=== PATIENT | male | born 1985 | race Caucasian/White ===

== ENCOUNTER 2022-12-06 01:47 | Outpatient (CLI) | payer BC, SELFPAY ==
[2022-12-06 16:50] LABS: Abs Immature Grans 0.02 10^3/uL (0.0-0.06); Absolute Basophil Count 0.04 10^3/uL (0.0-0.2); Absolute Eosinophil Count 0.27 10^3/uL (0.0-0.7); Absolute Lymphocyte Count 2.07 10^3/uL (1.2-3.4); Absolute Monocyte Count 0.52 10^3/uL (0.1-0.8); Absolute Neutrophil Count 5.57 10^3/uL (1.2-6.7); Basophils % 0.5; Eosinophils % 3.2; HCT 41.1 % (40.0-50.0); HGB 14.2 g/dL (13.5-17.5); Immature Grans % 0.2; Lymphocytes % 24.4; MCH 28.9 pg (27.0-33.0); MCHC 34.5 % (32.0-36.0); MCV 84 fL (80-95); MPV 9.8 fL (8.0-11.0); Monocytes % 6.1; Neutrophils % 65.6; Platelet Count 250 10^3/uL (130-400); RBC 4.92 10^6/uL (4.36-5.78); RDW 11.9 % (11.8-14.1); RDW-SD 36.2 fL; WBC 8.49 10^3/uL (4.4-10.8)
[2022-12-06 17:06] LABS: Hemoglobin A1C 5.8 % (<5.7)
[2022-12-06 18:25] LABS: ALT 53 U/L (16-63); AST 18 U/L (15-37); Alkaline Phosphatase 68 U/L (46-116); Anion Gap 12.3 mmol/L (3-11); BUN 16 mg/dL (7-18); Bilirubin, Total 0.3 mg/dL (0.2-1.0); CO2 23.7 mmol/L (21.0-32.0); CREATININE 1.3 mg/dL (0.70-1.30); Calcium 8.6 mg/dL (8.5-10.1); Chloride 103 mmol/L (98-107); Cholesterol 209 mg/dL (<200); Estimated GFR 73.01 (mL/min/1.73m2); Glucose 140 mg/dL (74-106); HDL Cholesterol 30 mg/dL (40-60); Potassium 3.6 mmol/L (3.5-5.1); Sodium 139 mmol/L (136-145); TSH (W/Ref FT4) 3.04 uIU/mL (0.36-3.74); Total Protein 7.7 g/dL (6.4-8.2); Triglyceride 481 mg/dL (<150)
[2022-12-06 18:52] LABS: LDL CHOLESTEROL 127 mg/dL (<100)
[2022-12-08 10:02] LABS: HIV-1/2 Ag & Ab Screen Negative (Negative)
[2022-12-09 15:24] LABS: Hepatitis C Ab w Rflx HCV PCR Negative (Negative)
== END 2022-12-06 01:48 | disposition home or self-care (01) ==
PROVIDERS: PCP Family Medicine; Visit Provider Family Medicine
DX: Z00.00 Encounter for general adult medical examination without abnormal findings (principal); R73.01 Impaired fasting glucose; E03.9 Hypothyroidism, unspecified; R61 Generalized hyperhidrosis; E66.9 Obesity, unspecified; Z13.6 Encounter for screening for cardiovascular disorders; Z11.4 Encounter for screening for human immunodeficiency virus [HIV]; Z11.59 Encounter for screening for other viral diseases; E78.2 Mixed hyperlipidemia
CPT/HCPCS: 36415; 80053; 80061; 83721; 86803; 87389; 83036; 84443; 85025